=== PATIENT | female | born 1960 | race Caucasian/White ===

== ENCOUNTER 2019-03-18 08:24 | Emergency (ER) | payer MEDICAID ==
[~2019-03-18] VITALS: Ht 165.1 cm; Wt 100.0 kg
[2019-03-18] MEDS ORDERED: KETOROLAC 30MG/ML VIAL IV STA (09:04)
[2019-03-18] MEDS ORDERED: SODIUM CHLORIDE 0.9% 1,000 ML IV ONE (09:04)
[2019-03-18] MEDS ORDERED: ONDANSETRON HCL 4MG/2ML INJ IV STA ×2 (09:04→10:14)
[2019-03-18] MEDS ORDERED: MORPHINE SULFATE 4 MG/ML CPJ (NOT FOR IM USE) IV STA (10:14)
[2019-03-18 10:23] LABS: CLARITY URINE CLEAR (CLEAR); COLOR URINE YELLOW (YELLOW); KETONES URINE 3+ (NEGATIVE); LEUKOCYTE ESTERASE URINE NEGATIVE (NEGATIVE); NITRITE URINE NEGATIVE (NEGATIVE); OCCULT BLOOD URINE TRACE (NEGATIVE); PH URINE 7.5 (4.5-8.0); PROTEIN URINE NEGATIVE (NEGATIVE); SPECIFIC GRAVITY URINE 1.018 (1.005-1.030); UROBILINOGEN URINE 0.2 E.U./dL (0.2-1.0)
[2019-03-18] MEDS ORDERED: TAMSULOSIN HCL 0.4MG SR CAPSULE PO ONE (10:45)
[2019-03-18] MEDS ORDERED: HYDROCODONE/ACETAMINOPHEN 5/325MG TABLET PO ONE (11:00)
[2019-03-18 11:12] VITALS: BP 137/66
== END 2019-03-18 11:20 | disposition home or self-care (01) ==
LOC: ER 08:43
DX: I10 Essential (primary) hypertension (principal); N23 Unspecified renal colic; Z88.0 Allergy status to penicillin; Z88.6 Allergy status to analgesic agent; Z88.5 Allergy status to narcotic agent
CPT/HCPCS: 74176; 81003; 96374; 96375; 96376; 99284; J1885; J2270; J2405; J7030